=== PATIENT | male | born 1970 | race Caucasian/White ===

== ENCOUNTER 2018-09-15 08:35 | Day surgery (SDC) | payer OTHER ==
[2018-09-15] MEDS ORDERED: Lidocaine 1% PF 2 ML SDV INJECT ONE (08:36)
[2018-09-15] MEDS ORDERED: Propofol 200 MG/20 ML SDV IV ONE (08:36)
[2018-09-15] MEDS ORDERED: Lactated Ringers 1,000 ML IV SCH (10:00)
--- NOTE | 2018-09-15 10:26 | PCM.OPNOTE ---
- General Post-Op/Procedure Note Date of Surgery/Procedure: 09/15/18 Operative Procedure(s): c scope Findings: nl exam Pre Op Diagnosis: colon cancer screening Post-Op Diagnosis: nl exam Anesthesia Technique: MAC Primary Surgeon: Elias Ochoa Anesthesia Provider: Kimo Bunch Complications: None Condition: Good Free Text/Narrative:: see dictation
--- NOTE | 2018-09-15 14:10 | OR ---
DATE OF OPERATION: 09/15/2018 SURGEON: Elias Ochoa MD PROCEDURE PERFORMED: Colonoscopy. PREOPERATIVE DIAGNOSIS: Need for screening C-scope. POSTOPERATIVE DIAGNOSIS: Normal scope. INDICATIONS FOR PROCEDURE: This is a 48-year-old white male who presents for his initial screening colonoscopy. DESCRIPTION OF OPERATION: After an excellent IV sedation was administered, digital rectal exam was performed. No marked abnormality was noted. Flexible colonoscope was inserted and advanced to the cecum. Prep was excellent. Following findings were noted. Ascending colon, unremarkable. Transverse colon, unremarkable. Descending colon, unremarkable. Sigmoid and rectum, unremarkable. The patient tolerated the procedure well. RECOMMENDATIONS: Repeat scope in 10 years. /[id number] /MODL
== END 2018-09-15 10:32 | disposition home or self-care (01) ==
LOC: FB.SDS 08:35
PROVIDERS: ATTEND Surgery
DX: Z12.11 Encounter for screening for malignant neoplasm of colon (principal); E78.5 Hyperlipidemia, unspecified; H52.03 Hypermetropia, bilateral
CPT/HCPCS: 45378; J2001; J2704; J7120

== ENCOUNTER 2020-08-27 16:39 | Emergency (ER) | payer OTHER ==
[2020-08-27] MEDS ORDERED: Acetaminophen/oxyCODONE 325-5 MG Tab PO ONE (16:40)
[2020-08-27] MEDS ORDERED: Ondansetron 4 MG Tab.DIS PO ONE (16:40)
[2020-08-27] MEDS ORDERED: Sodium Chloride 0.9% 10 ML Syringe FLUSH PRN (16:56)
[2020-08-27] MEDS ORDERED: Alum Hydroxide/Mag Hydroxide 15 ML, Lidocaine 2% 15 ML PO ONE ×2 (17:00)
[2020-08-27] MEDS ORDERED: Morphine 4 MG/ML VIAL IVPUSH STA (17:05)
[2020-08-27] MEDS ORDERED: Sodium Chloride 0.9% 1,000 ML IV SCH (17:15)
[2020-08-27] MEDS ORDERED: Iopamidol 755 Mg/ML 100 ML Bottle IV ONE (17:25)
--- NOTE | 2020-08-27 18:05 | EDM.PDOC ---
ED HPI GENERAL MEDICAL PROBLEM - General Chief Complaint: Abdominal Pain Stated Complaint: Abdominal pain Time Seen by Provider: 08/27/20 16:50 Source of Information: Reports: Patient History Limitations: Reports: No Limitations - History of Present Illness INITIAL COMMENTS - FREE TEXT/NARRATIVE: Patient presented to the ED because of sudden onset of periumbilical and epigastric pain which started 30 minutes prior to his arrival in the ED.The pain is continuous, sharp, 9/10. There is no there is no fever, chills, N/V/D or constipation. No urinary symptoms. He doesn't c/o of any fever,chills,cough or cold. - Related Data Allergies Allergy/AdvReac Type Severity Reaction Status Date / Time No Known Allergies Allergy Verified 09/15/18 08:51 Home Meds: Home Meds Acetaminophen/Diphenhydramine [Tylenol Pm Ex-Strength Caplet] 1 tab PO BEDTIME PRN 09/14/18 [History] Acetaminophen/oxyCODONE [Percocet 325-5 MG] 1 - 2 each PO Q4H PRN #10 tab 08/27/20 [Rx] Ondansetron [Zofran ODT] 4 mg PO Q4H PRN #5 tab.dis 08/27/20 [Rx] Past Medical History HEENT History: Reports: Impaired Vision Cardiovascular History: Reports: High Cholesterol Social & Family History - Tobacco Use Tobacco Use Status *Q: Unknown Ever Used Tobacco - Caffeine Use Caffeine Use: Reports: Coffee - Recreational Drug Use Recreational Drug Use: No ED ROS GENERAL - Review of Systems Review Of Systems: See Below Constitutional: Reports: No Symptoms HEENT: Reports: No Symptoms Respiratory: Reports: No Symptoms Cardiovascular: Reports: No Symptoms Endocrine: Reports: No Symptoms GI/Abdominal: Reports: Abdominal Pain : Reports: No Symptoms Musculoskeletal: Reports: No Symptoms Skin: Reports: No Symptoms Neurological: Reports: No Symptoms Psychiatric: Reports: No Symptoms ED EXAM, GI/ABD - Physical Exam Exam: See Below General Appearance: Alert, No Apparent Distress Ears: Normal External Exam, Normal [place] Nose: Normal Inspection, Normal Mucosa, No Blood Throat/Mouth: Normal Inspection, Normal Lips, Normal Teeth Head: Atraumatic, Normocephalic Neck: Normal Inspection, Supple, Non-Tender, Full Range of Motion Respiratory/Chest: No Respiratory Distress, Lungs Clear, Normal Breath Sounds Cardiovascular: Normal Peripheral Pulses, Regular Rate, Rhythm, No Edema, No Gallop, No JVD, No Murmur, No Rub GI/Abdominal Exam: Normal Bowel Sounds, Soft, Other (tenderness over the periumbilical area) Back Exam: Normal Inspection, Full Range of Motion Extremities: Normal Inspection, Normal Range of Motion, Non-Tender, No Pedal Edema, Normal Capillary Refill Neurological: Alert, Oriented, CN II-XII Intact, Normal Cognition Psychiatric: Normal Affect, Normal Mood Skin Exam: Warm #1 Interpretation EKG Date: 08/27/20 Time: 16:50 Rhythm: NSR Rate (Beats/Min): 86 [place]: Normal P-Wave: Present QRS: RBBB ST-T: Normal QT: Normal Comparison: NA - No Prior EKG (NSR RBBB) EKG Interpretation Comments: NSR RBBB Course - Vital Signs Text/Narrative:: Lab and CT result was reviewed and discussed with patient and his NS 1 L bolus Morphine 4 mg IV x1 GI cocktail Percocet 5/325, 2 po x1 Toradol 30 mg IV x1 Patient refused to be admitted and told me a that he can take care of himself at home. I told him to return to the ED anytime if pain is getting worse, peristent nausea,vomiting. Last Recorded V/S: Last Vital Signs Temp 36.4 C 08/27/20 16:48 Pulse 93 08/27/20 16:48 Resp 16 08/27/20 16:48 BP 119/79 08/27/20 16:48 Pulse Ox 98 08/27/20 16:48 - Orders/Labs/Meds Orders: Active Orders 24 hr Category Date Time Status EKG Documentation Completion [RC] ASDIRECTED Care 08/27/20 17:06 Active CORONAVIRUS (COVID19) [facility] Stat Lab 08/27/20 18:45 Ordered Sodium Chloride 0.9% [Normal Saline] 1,000 ml Med 08/27/20 17:15 Active IV ASDIRECTED Sodium Chloride 0.9% [Saline Flush] Med 08/27/20 16:56 Active 10 ml FLUSH ASDIRECTED PRN Saline Lock Insert [OM.PC] Routine Oth 08/27/20 16:56 Ordered EKG 12 Lead [EK] Routine Ther 08/27/20 17:06 Ordered Medication Orders Sodium Chloride (Normal Saline) 1,000 mls @ 999 mls/hr IV ASDIRECTED STEPHEN Last Admin: 08/27/20 17:28 Dose: 999 mls/hr Documented by: GABRIEL Sodium Chloride (Sodium Chloride 0.9% 10 Ml Syringe) 10 ml FLUSH ASDIRECTED PRN PRN Reason: Keep Vein Open Last Admin: 08/27/20 18:28 Dose: 10 ml Documented by: GABRIEL Labs: Laboratory Tests 08/27/20 08/27/20 08/27/20 Range/Units 17:20 17:20 17:20 WBC 9.4 (3.2-10.1) x10-3/uL RBC 4.80 (3.90-5.90) x10(6)uL Hgb 14.7 (12.9-17.7) g/dL Hct 43.1 (38.3-50.1) % MCV 89.8 (80.8-98.7) fL MCH 30.7 (27.0-33.3) pg MCHC 34.2 (28.7-35.3) g/dL RDW 14.3 (12.4-15.0) % Plt Count 755 H (117-477) x10(3)uL MPV 7.4 (6.7-11.0) fL Neut % (Auto) 68.8 (40.3-71.8) % Lymph % (Auto) 21.4 (15.8-45.3) % [place] % (Auto) 7.1 (5.5-15.2) % Eos % (Auto) 1.9 (0.1-6.8) % Baso % (Auto) 0.8 (0.3-3.8) % Neut # (Auto) 6.5 (1.7-6.9) x10-3/uL Lymph # (Auto) 2.0 (0.5-4.5) x10-3/uL [place] # (Auto) 0.7 (0.0-1.2) x10-3/uL Eos # (Auto) 0.2 (0.0-0.6) x10-3/uL Baso # (Auto) 0.1 (0.0-0.3) x10-3/uL PT (9.0-11.1) sec INR (1.00-1.24) APTT (24.4-33.2) SECONDS Sodium 139 (135-145) mmol/L Potassium 4.0 (3.5-5.3) mmol/L Chloride 101 (100-110) mmol/L Carbon Dioxide 24 (21-32) mmol/L BUN 22 H (7-18) mg/dL Creatinine 1.5 H (0.70-1.30) mg/dL Est Cr Clr Drug Dosing TNP Estimated GFR (MDRD) 49 L (>60) BUN/Creatinine Ratio 14.7 (9-20) Glucose 112 (80-116) mg/dL Calcium 8.1 L (8.6-10.2) mg/dL Total Bilirubin 0.9 (0.1-1.3) mg/dL AST 27 H (5-25) IU/L ALT 42 H (12-36) U/L Alkaline Phosphatase 92 (56-112) IU/L Troponin I (4.0-60.3) pg/mL Total Protein 7.2 (6.0-8.0) g/dL Albumin 3.9 (3.5-5.2) g/dL Globulin 3.3 g/dL Albumin/Globulin Ratio 1.2 Amylase 51 (25-115) U/L Lipase 120 (73-393) U/L Urine Color (YELLOW) Urine Appearance (CLEAR) Urine pH (5.0-6.5) Ur Specific [place] (1.010-1.025) Urine Protein (NEGATIVE) mg/dL Urine Glucose (UA) (NORMAL) mg/dL Urine Ketones (NEGATIVE) mg/dL Urine Occult Blood (NEGATIVE) Urine Nitrite (NEGATIVE) Urine Bilirubin (NEGATIVE) Urine Urobilinogen (NEGATIVE) mg/dL Ur Leukocyte Esterase (NEGATIVE) Urine RBC (0-5) Urine WBC (0-5) Ur Squamous Epith Cells (NS,R,O) Urine Bacteria (NS) 08/27/20 08/27/20 08/27/20 Range/Units 17:20 17:20 17:54 WBC (3.2-10.1) x10-3/uL RBC (3.90-5.90) x10(6)uL Hgb (12.9-17.7) g/dL Hct (38.3-50.1) % MCV (80.8-98.7) fL MCH (27.0-33.3) pg MCHC (28.7-35.3) g/dL RDW (12.4-15.0) % Plt Count (117-477) x10(3)uL MPV (6.7-11.0) fL Neut % (Auto) (40.3-71.8) % Lymph % (Auto) (15.8-45.3) % [place] % (Auto) (5.5-15.2) % Eos % (Auto) (0.1-6.8) % Baso % (Auto) (0.3-3.8) % Neut # (Auto) (1.7-6.9) x10-3/uL Lymph # (Auto) (0.5-4.5) x10-3/uL [place] # (Auto) (0.0-1.2) x10-3/uL Eos # (Auto) (0.0-0.6) x10-3/uL Baso # (Auto) (0.0-0.3) x10-3/uL PT 11.3 H (9.0-11.1) sec INR 1.05 (1.00-1.24) APTT 22.4 L (24.4-33.2) SECONDS Sodium (135-145) mmol/L Potassium (3.5-5.3) mmol/L Chloride (100-110) mmol/L Carbon Dioxide (21-32) mmol/L BUN (7-18) mg/dL Creatinine (0.70-1.30) mg/dL Est Cr Clr Drug Dosing Estimated GFR (MDRD) (>60) BUN/Creatinine Ratio (9-20) Glucose (80-116) mg/dL Calcium (8.6-10.2) mg/dL Total Bilirubin (0.1-1.3) mg/dL AST (5-25) IU/L ALT (12-36) U/L Alkaline Phosphatase (56-112) IU/L Troponin I 4.5 (4.0-60.3) pg/mL Total Protein (6.0-8.0) g/dL Albumin (3.5-5.2) g/dL Globulin g/dL Albumin/Globulin Ratio Amylase (25-115) U/L Lipase (73-393) U/L Urine Color Yellow (YELLOW) Urine Appearance Clear (CLEAR) Urine pH 5.0 (5.0-6.5) Ur Specific [place] 1.020 (1.010-1.025) Urine Protein Negative (NEGATIVE) mg/dL Urine Glucose (UA) Normal (NORMAL) mg/dL Urine Ketones Negative (NEGATIVE) mg/dL Urine Occult Blood Negative (NEGATIVE) Urine Nitrite Negative (NEGATIVE) Urine Bilirubin Negative (NEGATIVE) Urine Urobilinogen Normal (NEGATIVE) mg/dL Ur Leukocyte Esterase Negative (NEGATIVE) Urine RBC 0-5 (0-5) Urine WBC 0-5 (0-5) Ur Squamous Epith Cells Occasional (NS,R,O) Urine Bacteria Occasional H (NS) Meds: Medications Generic Name Dose Route Start Last Admin Trade Name Freq PRN Reason Stop Dose Admin Sodium Chloride 1,000 mls @ 999 mls/hr 08/27/20 17:15 08/27/20 17:28 Normal Saline IV 999 mls/hr ASDIRECTED STEPHEN Administration Sodium Chloride 10 ml 08/27/20 16:56 08/27/20 18:28 Sodium Chloride 0.9% 10 Ml Syringe FLUSH 10 ml ASDIRECTED PRN Administration Keep Vein Open Discontinued Medications Generic Name Dose Route Start Last Admin Trade Name Freq PRN Reason Stop Dose Admin Al Hydroxide/Mg Hydroxide 15 0 ml 08/27/20 17:00 08/27/20 17:11 ml/ Lidocaine HCl 15 ml PO 08/27/20 17:01 30 ml ONETIME ONE Administration Iopamidol 100 ml 08/27/20 17:25 08/27/20 17:44 Iopamidol 755 Mg/Ml 100 Ml Bottle IV 08/27/20 17:26 100 ml . DIRECTED ONE Administration Ketorolac Tromethamine 30 mg 08/27/20 18:55 08/27/20 19:08 Ketorolac 30 Mg/Ml Sdv IVPUSH 08/27/20 18:56 30 mg NOW STA Administration Morphine Sulfate 4 mg 08/27/20 17:05 08/27/20 17:11 Morphine 4 Mg/Ml Vial IVPUSH 08/27/20 17:06 4 mg NOW STA Administration Oxycodone/Acetaminophen 2 tab 08/27/20 18:55 08/27/20 19:08 Acetaminophen/Oxycodone 325-5 Mg Tab PO 08/27/20 18:56 2 tab NOW STA Administration Departure - Departure Time of Disposition: 19:30 Disposition: Home, Self-Care 01 Condition: Good Clinical Impression: Acute pancreatitis - Discharge Information Prescriptions: Acetaminophen/oxyCODONE [Percocet 325-5 MG] 1 - 2 each PO Q4H PRN #10 tab PRN Reason: Pain Ondansetron [Zofran ODT] 4 mg PO Q4H PRN #5 tab.dis PRN Reason: Nausea Instructions: Acute Pancreatitis, [id number] Referrals: Kimo Miranda MD [Primary Care Provider] - Forms: ED Department Discharge Additional Instructions: Please read discharge instructions on acute pancreatitis NO alcohol, greasy foods while you have the abdominal pain Take zofran ODT 4 mg every 4 hours as needed for nausea Percocet 5/325, 1-2 tablets every 4-6 hours as needed for pain Return to the ED anytime if your pain is unbearable, persistent nausea/vomiting, bloody stools, otherwise, follow up with your doctor this week. Sepsis Event Note (ED) - Evaluation Sepsis Screening Result: No Definite Risk - Focused Exam Vital Signs: Vital Signs Temp Pulse Resp BP Pulse Ox 08/27/20 16:48 36.4 C 93 16 119/79 98 - My Orders Last 24 Hours: My Active Orders 08/27/20 16:56 Sodium Chloride 0.9% [Saline Flush] 10 ml FLUSH ASDIRECTED PRN Saline Lock Insert [OM.PC] Routine 08/27/20 17:06 EKG Documentation Completion [RC] ASDIRECTED EKG 12 Lead [EK] Routine 08/27/20 17:15 Sodium Chloride 0.9% [Normal Saline] 1,000 ml IV ASDIRECTED 08/27/20 18:45 CORONAVIRUS (COVID19) [facility] Stat - Assessment/Plan Last 24 Hours: My Active Orders 08/27/20 16:56 Sodium Chloride 0.9% [Saline Flush] 10 ml FLUSH ASDIRECTED PRN Saline Lock Insert [OM.PC] Routine 08/27/20 17:06 EKG Documentation Completion [RC] ASDIRECTED EKG 12 Lead [EK] Routine 08/27/20 17:15 Sodium Chloride 0.9% [Normal Saline] 1,000 ml IV ASDIRECTED 08/27/20 18:45 CORONAVIRUS (COVID19) [facility] Stat
[2020-08-27] MEDS ORDERED: Acetaminophen/oxyCODONE 325-5 MG Tab PO STA (18:55)
[2020-08-27] MEDS ORDERED: Ketorolac 30 MG/ML SDV IVPUSH STA (18:55)
--- NOTE | 2020-08-27 18:55 | CT ---
INDICATION: Periumbilical abdominal pain, also diffuse pain in the abdomen. CT ABDOMEN AND PELVIS WITH CONTRAST: Spiral 3.75 mm axial sections were obtained through the abdomen and pelvis with 100 cc Isovue-370 at 2 mL per second, with sagittal and coronal reconstructions 08/27/20 - no comparisons. Total exam DLP was 1543.85 mGy-cm. The lower lung palma and pleural spaces visualized were unremarkable. No pericardial effusion was seen with normal heart size. The liver showed evidence of a few tiny low-density lesions compatible with simple cysts with the gallbladder appearing unremarkable. No ductal dilatation was suggested. The spleen and pancreatic tail and body appeared normal. There is noted a small splenule at the splenic hilum. The pancreatic head was not well seen due to surrounding fat stranding and fluid which appears to be emanating from the head of the pancreas area medially and laterally into the paracolic gutter and extending inferiorly into the upper pelvis anteriorly also. The appearance is suggestive of pancreatic head pancreatitis with phlegmon formation. No definite retroperitoneal mass was seen. The kidneys and adrenal glands appear essentially normal. What appears to be appendix appeared normal on coronal images 45 through 48. No definite bowel obstruction was identified. No free air was seen. There appears to be some thickening of the wall of the urinary bladder which may be on the basis of cystitis and should be correlated clinically. No definite inguinal or ventral hernia was identified. IMPRESSION: Findings are suspicious for pancreatitis in the head of the pancreas with fairly severe phlegmon formation subsequently present. This should be correlated clinically as other etiology is difficult to entirely exclude such as infection, or possibly bowel inflammation or other etiology. Report was called to Dr. Horton at approximately 1830 hours. [facility]
== END 2020-08-27 19:32 | disposition home or self-care (01) ==
LOC: FB.ED 16:39
DX: K85.90 Acute pancreatitis without necrosis or infection, unspecified (principal)
CPT/HCPCS: 36415; 74177; 80053; 81001; 82150; 83690; 84484; 85025; 85610; 85730; 93005; 93010; 96374; 96375; 99283; 99284-25; A9270-GY; J1885; J2270; J7030; Q9967

== ENCOUNTER 2020-08-29 14:46 | Inpatient (IN) | payer OTHER ==
[2020-08-29] MEDS ORDERED: Ondansetron 4 MG/2 ML SDV IV PRN (15:04)
[2020-08-29] MEDS ORDERED: Sodium Chloride 0.9% 10 ML Syringe FLUSH PRN (15:04)
[2020-08-29] MEDS: Sodium Chloride 0.9% 1,000 ML IV SCH ×2 (15:50→23:11)
--- NOTE | 2020-08-29 16:23 | PCM.HP.2 ---
H&P History of Present Illness - General Date of Service: 08/29/20 Admit Problem/Dx: Admission Diagnosis/Problem Admission Diagnosis/Problem Acute pancreatitis Source of Information: Patient History Limitations: Reports: No Limitations - History of Present Illness Initial Comments - Free Text/Narative: This is a 49 male patient that was seen in the emergency room on 08/27/2020 and diagnosed with pancreatitis on CT scan. Patient refused admission and went home. He's having acute onset of periumbilical epigastric pain. He denied any nausea or vomiting. He has a little fevers and chills now and no nausea. Normal bowel movements. He has never had his gallbladder removed. He states he normally drinks a couple times a week couple beers. Last 2 weeks he's been on medication has been drinking more than normal he states about 6 drinks a day. - Related Data Allergies/Adverse Reactions: Allergies Allergy/AdvReac Type Severity Reaction Status Date / Time No Known Allergies Allergy Verified 09/15/18 08:51 Home Medications: Home Meds Acetaminophen/Diphenhydramine [Tylenol Pm Ex-Strength Caplet] 1 tab PO BEDTIME PRN 09/14/18 [History] Ibuprofen 200 - 400 mg PO Q4H PRN 08/29/20 [History] Past Medical History HEENT History: Reports: Impaired Vision Cardiovascular History: Reports: High Cholesterol Social & Family History - Family History Family Medical History: No Pertinent Family History - Caffeine Use Caffeine Use: Reports: Coffee H&P Review of Systems - Review of Systems: Review Of Systems: See Below General: Reports: Fever, Chills HEENT: Reports: No Symptoms Pulmonary: Reports: No Symptoms Cardiovascular: Reports: No Symptoms Gastrointestinal: Reports: Abdominal Pain Genitourinary: Reports: No Symptoms Musculoskeletal: Reports: No Symptoms Skin: Reports: No Symptoms Psychiatric: Reports: No Symptoms Neurological: Reports: No Symptoms Hematologic/Lymphatic: Reports: No Symptoms Immunologic: Reports: No Symptoms Exam - Exam Exam: See Below - Exam General: Alert, Oriented, Cooperative HEENT: PERRLA, TMs Clear Neck: Supple, Trachea Midline Lungs: Clear to Auscultation, Normal Respiratory Effort Cardiovascular: Regular Rate. No: Systolic Murmur GI/Abdominal Exam: Normal Bowel Sounds, No Organomegaly, No Distention, Distended, Tender. No: Guarding, Rigid, Hepatomegaly, Splenomegaly Extremities: Normal Inspection, Non-Tender, No Pedal Edema Neurological: Normal Speech, Normal Tone Neuro Extensive - Mental Status: Alert, Oriented x3, Normal Mood/Affect, Normal Cognition Neuro Extensive - Motor, Sensory, Reflexes: Normal Gait Psychiatric: Alert, Normal Affect, Normal Mood - Patient Data Lab Results Last 24 hrs: Laboratory Results - last 24 hr 08/29/20 08/29/20 Range/Units 15:25 15:25 WBC 10.0 (3.2-10.1) x10-3/uL RBC 4.16 (3.90-5.90) x10(6)uL Hgb 12.5 L (12.9-17.7) g/dL Hct 37.5 L (38.3-50.1) % MCV 90.1 (80.8-98.7) fL MCH 30.0 (27.0-33.3) pg MCHC 33.3 (28.7-35.3) g/dL RDW 14.0 (12.4-15.0) % Plt Count 573 H (117-477) x10(3)uL MPV 7.6 (6.7-11.0) fL Neut % (Auto) 77.7 H (40.3-71.8) % Lymph % (Auto) 12.2 L (15.8-45.3) % [place] % (Auto) 8.8 (5.5-15.2) % Eos % (Auto) 0.7 (0.1-6.8) % Baso % (Auto) 0.6 (0.3-3.8) % Neut # (Auto) 7.8 H (1.7-6.9) x10-3/uL Lymph # (Auto) 1.2 (0.5-4.5) x10-3/uL [place] # (Auto) 0.9 (0.0-1.2) x10-3/uL Eos # (Auto) 0.1 (0.0-0.6) x10-3/uL Baso # (Auto) 0.1 (0.0-0.3) x10-3/uL Lipase 72 L (73-393) U/L Result Diagrams: 08/29/20 15:25 - Problem List (1) Acute pancreatitis SNOMED Code(s): 271565570 ICD Code: K85.90 - ACUTE PANCREATITIS WITHOUT NECROSIS OR INFECTION, UNSP Status: Acute Current Visit: No Problem List Initiated/Reviewed/Updated: Yes Orders Last 24hrs: Active Orders 24 hr Category Date Time Status Patient Status [ADT] Routine ADT 08/29/20 15:04 Active Height and Weight [RC] DAILY Care 08/29/20 15:04 Active Intake and Output [RC] QSHIFT Care 08/29/20 15:04 Active Oxygen Therapy [RC] PRN Care 08/29/20 15:04 Active Up ad Sukhdeep [RC] ASDIRECTED Care 08/29/20 15:04 Active VTE/DVT Education [RC] Per Unit Routine Care 08/29/20 15:04 Active Vital Signs [RC] Q4H Care 08/29/20 15:04 Active Clear Liquid Diet [DIET] Diet 08/29/20 Dinner Active COMPREHENSIVE METABOLIC PN,CMP [CHEM] Routine Lab 08/29/20 15:25 Received CORONAVIRUS COVID-19 TATA [MOLEC] Stat Lab 08/29/20 16:02 Ordered Enoxaparin [Lovenox] Med 08/29/20 16:30 Active 40 mg SUBCUT Q24H Ondansetron [Zofran] Med 08/29/20 15:04 Active 4 mg IV Q4H PRN Pantoprazole [ProTONIX IV] Med 08/29/20 15:15 Active 40 mg IVPUSH DAILY Sodium Chloride 0.9% [Normal Saline] 1,000 ml Med 08/29/20 15:15 Active IV ASDIRECTED Sodium Chloride 0.9% [Saline Flush] Med 08/29/20 15:04 Active 10 ml FLUSH ASDIRECTED PRN Peripheral IV Insertion Adult [OM.PC] Routine Oth 08/29/20 15:04 Ordered Sequential Compression Device [OM.PC] Per Unit Routine Oth 08/29/20 15:05 Ordered Resuscitation Status Routine Resus Stat 08/29/20 15:04 Ordered Medication Orders Enoxaparin Sodium (Enoxaparin 40 Mg/0.4 Ml Syringe) 40 mg SUBCUT Q24H STEPHEN Sodium Chloride (Normal Saline) 1,000 mls @ 125 mls/hr IV ASDIRECTED STEPHEN Last Admin: 08/29/20 15:50 Dose: 125 mls/hr Documented by: NELLIE Ondansetron HCl (Ondansetron 4 Mg/2 Ml Sdv) 4 mg IV Q4H PRN PRN Reason: Nausea/Vomiting Pantoprazole Sodium (Pantoprazole 40 Mg Vial) 40 mg IVPUSH DAILY STEPHEN Sodium Chloride (Sodium Chloride 0.9% 10 Ml Syringe) 10 ml FLUSH ASDIRECTED PRN PRN Reason: Keep Vein Open Assessment/Plan Comment:: 1. Admit to the inpatient per 2. Lovenox for DVT prophylaxis 3. Clear liquid diet 4. Up ad sukhdeep. 5. IV fluids 6. IV pain medications 7. Repeat labs including lipase. 8. Full code. - Mortality Measure Prognosis:: Good
[2020-08-29] MEDS ORDERED: Morphine 2 MG/ML SYRINGE IVPUSH PRN (16:24)
[2020-08-29] MEDS: Pantoprazole 40 MG Vial IVPUSH SCH (17:03)
[2020-08-29] MEDS: Enoxaparin 40 MG/0.4 ML Syringe SUBCUT SCH (17:03)
[2020-08-30] MEDS: Sodium Chloride 0.9% 1,000 ML IV SCH ×2 (07:16→15:25)
--- NOTE | 2020-08-30 08:27 | PCM.PN ---
- General Info Date of Service: 08/30/20 Admission Dx/Problem (Free Text): The patient states is about the same today. Still has abdominal pain is generalized and bloating. No fevers or chills. Use MS last night and he did not sleep very well because of back pain and abdominal pain. - Patient Data Vitals - Most Recent: Last Vital Signs Temp 98.6 F 08/30/20 06:00 Pulse 85 08/30/20 06:00 Resp 16 08/30/20 06:00 BP 144/89 H 08/30/20 06:00 Pulse Ox 95 08/30/20 06:00 Weight - Most Recent: 241 lb 1 oz I&O - Last 24 Hours: Intake & Output 08/29/20 08/30/20 08/30/20 22:59 06:59 14:59 Intake Total 1950 1000 Output Total 650 Balance 1300 1000 Lab Results Last 24 Hours: Laboratory Results - last 24 hr 08/29/20 08/29/20 08/29/20 Range/Units 15:25 15:25 15:25 WBC 10.0 (3.2-10.1) x10-3/uL RBC 4.16 (3.90-5.90) x10(6)uL Hgb 12.5 L (12.9-17.7) g/dL Hct 37.5 L (38.3-50.1) % MCV 90.1 (80.8-98.7) fL MCH 30.0 (27.0-33.3) pg MCHC 33.3 (28.7-35.3) g/dL RDW 14.0 (12.4-15.0) % Plt Count 573 H (117-477) x10(3)uL MPV 7.6 (6.7-11.0) fL Neut % (Auto) 77.7 H (40.3-71.8) % Lymph % (Auto) 12.2 L (15.8-45.3) % [place] % (Auto) 8.8 (5.5-15.2) % Eos % (Auto) 0.7 (0.1-6.8) % Baso % (Auto) 0.6 (0.3-3.8) % Neut # (Auto) 7.8 H (1.7-6.9) x10-3/uL Lymph # (Auto) 1.2 (0.5-4.5) x10-3/uL [place] # (Auto) 0.9 (0.0-1.2) x10-3/uL Eos # (Auto) 0.1 (0.0-0.6) x10-3/uL Baso # (Auto) 0.1 (0.0-0.3) x10-3/uL Sodium 138 (135-145) mmol/L Potassium 4.1 (3.5-5.3) mmol/L Chloride 99 L (100-110) mmol/L Carbon Dioxide 26 (21-32) mmol/L BUN 14 (7-18) mg/dL Creatinine 1.2 (0.70-1.30) mg/dL Est Cr Clr Drug Dosing TNP Estimated GFR (MDRD) > 60 (>60) BUN/Creatinine Ratio 11.7 (9-20) Glucose 88 (80-116) mg/dL Calcium 8.5 L (8.6-10.2) mg/dL Total Bilirubin 1.4 H (0.1-1.3) mg/dL AST 29 H (5-25) IU/L ALT 36 D (12-36) U/L Alkaline Phosphatase 88 (56-112) IU/L Total Protein 7.3 (6.0-8.0) g/dL Albumin 3.8 (3.5-5.2) g/dL Globulin 3.5 g/dL Albumin/Globulin Ratio 1.1 Lipase 72 L (73-393) U/L SARS-CoV-2 RNA (TATA) (NEGATIVE) 08/29/20 08/30/20 08/30/20 Range/Units 15:40 06:20 06:20 WBC 8.3 (3.2-10.1) x10-3/uL RBC 3.76 L (3.90-5.90) x10(6)uL Hgb 11.4 L (12.9-17.7) g/dL Hct 34.2 L (38.3-50.1) % MCV 91.0 (80.8-98.7) fL MCH 30.4 (27.0-33.3) pg MCHC 33.4 (28.7-35.3) g/dL RDW 13.9 (12.4-15.0) % Plt Count 546 H (117-477) x10(3)uL MPV 7.7 (6.7-11.0) fL Neut % (Auto) 71.4 (40.3-71.8) % Lymph % (Auto) 18.6 (15.8-45.3) % [place] % (Auto) 8.3 (5.5-15.2) % Eos % (Auto) 1.2 (0.1-6.8) % Baso % (Auto) 0.5 (0.3-3.8) % Neut # (Auto) 5.9 (1.7-6.9) x10-3/uL Lymph # (Auto) 1.5 (0.5-4.5) x10-3/uL [place] # (Auto) 0.7 (0.0-1.2) x10-3/uL Eos # (Auto) 0.1 (0.0-0.6) x10-3/uL Baso # (Auto) 0.0 (0.0-0.3) x10-3/uL Sodium 141 (135-145) mmol/L Potassium 4.1 (3.5-5.3) mmol/L Chloride 101 (100-110) mmol/L Carbon Dioxide 28 (21-32) mmol/L BUN 12 (7-18) mg/dL Creatinine 1.2 (0.70-1.30) mg/dL Est Cr Clr Drug Dosing 87.04 Estimated GFR (MDRD) > 60 (>60) BUN/Creatinine Ratio 10.0 (9-20) Glucose 83 (80-116) mg/dL Calcium 8.0 L (8.6-10.2) mg/dL Total Bilirubin 1.2 (0.1-1.3) mg/dL AST 25 D (5-25) IU/L ALT 30 D (12-36) U/L Alkaline Phosphatase 76 (56-112) IU/L Total Protein 6.5 (6.0-8.0) g/dL Albumin 3.2 L (3.5-5.2) g/dL Globulin 3.3 g/dL Albumin/Globulin Ratio 1.0 Lipase (73-393) U/L SARS-CoV-2 RNA (TATA) Negative (NEGATIVE) 08/30/20 Range/Units 06:20 WBC (3.2-10.1) x10-3/uL RBC (3.90-5.90) x10(6)uL Hgb (12.9-17.7) g/dL Hct (38.3-50.1) % MCV (80.8-98.7) fL MCH (27.0-33.3) pg MCHC (28.7-35.3) g/dL RDW (12.4-15.0) % Plt Count (117-477) x10(3)uL MPV (6.7-11.0) fL Neut % (Auto) (40.3-71.8) % Lymph % (Auto) (15.8-45.3) % [place] % (Auto) (5.5-15.2) % Eos % (Auto) (0.1-6.8) % Baso % (Auto) (0.3-3.8) % Neut # (Auto) (1.7-6.9) x10-3/uL Lymph # (Auto) (0.5-4.5) x10-3/uL [place] # (Auto) (0.0-1.2) x10-3/uL Eos # (Auto) (0.0-0.6) x10-3/uL Baso # (Auto) (0.0-0.3) x10-3/uL Sodium (135-145) mmol/L Potassium (3.5-5.3) mmol/L Chloride (100-110) mmol/L Carbon Dioxide (21-32) mmol/L BUN (7-18) mg/dL Creatinine (0.70-1.30) mg/dL Est Cr Clr Drug Dosing Estimated GFR (MDRD) (>60) BUN/Creatinine Ratio (9-20) Glucose (80-116) mg/dL Calcium (8.6-10.2) mg/dL Total Bilirubin (0.1-1.3) mg/dL AST (5-25) IU/L ALT (12-36) U/L Alkaline Phosphatase (56-112) IU/L Total Protein (6.0-8.0) g/dL Albumin (3.5-5.2) g/dL Globulin g/dL Albumin/Globulin Ratio Lipase 70 L (73-393) U/L SARS-CoV-2 RNA (TATA) (NEGATIVE) Med Orders - Current: Current Medications Enoxaparin Sodium (Enoxaparin 40 Mg/0.4 Ml Syringe) 40 mg SUBCUT Q24H [facility] Last Admin: 08/29/20 17:03 Dose: 40 mg Documented by: Sodium Chloride (Normal Saline) 1,000 mls @ 125 mls/hr IV ASDIRECTED [facility] Last Admin: 08/30/20 07:16 Dose: 125 mls/hr Documented by: Morphine Sulfate (Morphine 2 Mg/Ml Syringe) 2 mg IVPUSH Q4H PRN PRN Reason: Pain Last Admin: 08/29/20 21:24 Dose: 2 mg Documented by: Ondansetron HCl (Ondansetron 4 Mg/2 Ml Sdv) 4 mg IV Q4H PRN PRN Reason: Nausea/Vomiting Pantoprazole Sodium (Pantoprazole 40 Mg Vial) 40 mg IVPUSH DAILY [facility] Last Admin: 08/29/20 17:03 Dose: 40 mg Documented by: Sodium Chloride (Sodium Chloride 0.9% 10 Ml Syringe) 10 ml FLUSH ASDIRECTED PRN PRN Reason: Keep Vein Open - Exam General: Alert, Oriented Lungs: Normal Respiratory Effort GI/Abdominal Exam: Soft, Tender (Diffuse). No: Guarding, Rebound - Patient Data Lab Results Last 24 hrs: Laboratory Results - last 24 hr 08/29/20 08/29/20 08/29/20 Range/Units 15:25 15:25 15:25 WBC 10.0 (3.2-10.1) x10-3/uL RBC 4.16 (3.90-5.90) x10(6)uL Hgb 12.5 L (12.9-17.7) g/dL Hct 37.5 L (38.3-50.1) % MCV 90.1 (80.8-98.7) fL MCH 30.0 (27.0-33.3) pg MCHC 33.3 (28.7-35.3) g/dL RDW 14.0 (12.4-15.0) % Plt Count 573 H (117-477) x10(3)uL MPV 7.6 (6.7-11.0) fL Neut % (Auto) 77.7 H (40.3-71.8) % Lymph % (Auto) 12.2 L (15.8-45.3) % [place] % (Auto) 8.8 (5.5-15.2) % Eos % (Auto) 0.7 (0.1-6.8) % Baso % (Auto) 0.6 (0.3-3.8) % Neut # (Auto) 7.8 H (1.7-6.9) x10-3/uL Lymph # (Auto) 1.2 (0.5-4.5) x10-3/uL [place] # (Auto) 0.9 (0.0-1.2) x10-3/uL Eos # (Auto) 0.1 (0.0-0.6) x10-3/uL Baso # (Auto) 0.1 (0.0-0.3) x10-3/uL Sodium 138 (135-145) mmol/L Potassium 4.1 (3.5-5.3) mmol/L Chloride 99 L (100-110) mmol/L Carbon Dioxide 26 (21-32) mmol/L BUN 14 (7-18) mg/dL Creatinine 1.2 (0.70-1.30) mg/dL Est Cr Clr Drug Dosing TNP Estimated GFR (MDRD) > 60 (>60) BUN/Creatinine Ratio 11.7 (9-20) Glucose 88 (80-116) mg/dL Calcium 8.5 L (8.6-10.2) mg/dL Total Bilirubin 1.4 H (0.1-1.3) mg/dL AST 29 H (5-25) IU/L ALT 36 D (12-36) U/L Alkaline Phosphatase 88 (56-112) IU/L Total Protein 7.3 (6.0-8.0) g/dL Albumin 3.8 (3.5-5.2) g/dL Globulin 3.5 g/dL Albumin/Globulin Ratio 1.1 Lipase 72 L (73-393) U/L SARS-CoV-2 RNA (TATA) (NEGATIVE) 08/29/20 08/30/20 08/30/20 Range/Units 15:40 06:20 06:20 WBC 8.3 (3.2-10.1) x10-3/uL RBC 3.76 L (3.90-5.90) x10(6)uL Hgb 11.4 L (12.9-17.7) g/dL Hct 34.2 L (38.3-50.1) % MCV 91.0 (80.8-98.7) fL MCH 30.4 (27.0-33.3) pg MCHC 33.4 (28.7-35.3) g/dL RDW 13.9 (12.4-15.0) % Plt Count 546 H (117-477) x10(3)uL MPV 7.7 (6.7-11.0) fL Neut % (Auto) 71.4 (40.3-71.8) % Lymph % (Auto) 18.6 (15.8-45.3) % [place] % (Auto) 8.3 (5.5-15.2) % Eos % (Auto) 1.2 (0.1-6.8) % Baso % (Auto) 0.5 (0.3-3.8) % Neut # (Auto) 5.9 (1.7-6.9) x10-3/uL Lymph # (Auto) 1.5 (0.5-4.5) x10-3/uL [place] # (Auto) 0.7 (0.0-1.2) x10-3/uL Eos # (Auto) 0.1 (0.0-0.6) x10-3/uL Baso # (Auto) 0.0 (0.0-0.3) x10-3/uL Sodium 141 (135-145) mmol/L Potassium 4.1 (3.5-5.3) mmol/L Chloride 101 (100-110) mmol/L Carbon Dioxide 28 (21-32) mmol/L BUN 12 (7-18) mg/dL Creatinine 1.2 (0.70-1.30) mg/dL Est Cr Clr Drug Dosing 87.04 Estimated GFR (MDRD) > 60 (>60) BUN/Creatinine Ratio 10.0 (9-20) Glucose 83 (80-116) mg/dL Calcium 8.0 L (8.6-10.2) mg/dL Total Bilirubin 1.2 (0.1-1.3) mg/dL AST 25 D (5-25) IU/L ALT 30 D (12-36) U/L Alkaline Phosphatase 76 (56-112) IU/L Total Protein 6.5 (6.0-8.0) g/dL Albumin 3.2 L (3.5-5.2) g/dL Globulin 3.3 g/dL Albumin/Globulin Ratio 1.0 Lipase (73-393) U/L SARS-CoV-2 RNA (TATA) Negative (NEGATIVE) 08/30/20 Range/Units 06:20 WBC (3.2-10.1) x10-3/uL RBC (3.90-5.90) x10(6)uL Hgb (12.9-17.7) g/dL Hct (38.3-50.1) % MCV (80.8-98.7) fL MCH (27.0-33.3) pg MCHC (28.7-35.3) g/dL RDW (12.4-15.0) % Plt Count (117-477) x10(3)uL MPV (6.7-11.0) fL Neut % (Auto) (40.3-71.8) % Lymph % (Auto) (15.8-45.3) % [place] % (Auto) (5.5-15.2) % Eos % (Auto) (0.1-6.8) % Baso % (Auto) (0.3-3.8) % Neut # (Auto) (1.7-6.9) x10-3/uL Lymph # (Auto) (0.5-4.5) x10-3/uL [place] # (Auto) (0.0-1.2) x10-3/uL Eos # (Auto) (0.0-0.6) x10-3/uL Baso # (Auto) (0.0-0.3) x10-3/uL Sodium (135-145) mmol/L Potassium (3.5-5.3) mmol/L Chloride (100-110) mmol/L Carbon Dioxide (21-32) mmol/L BUN (7-18) mg/dL Creatinine (0.70-1.30) mg/dL Est Cr Clr Drug Dosing Estimated GFR (MDRD) (>60) BUN/Creatinine Ratio (9-20) Glucose (80-116) mg/dL Calcium (8.6-10.2) mg/dL Total Bilirubin (0.1-1.3) mg/dL AST (5-25) IU/L ALT (12-36) U/L Alkaline Phosphatase (56-112) IU/L Total Protein (6.0-8.0) g/dL Albumin (3.5-5.2) g/dL Globulin g/dL Albumin/Globulin Ratio Lipase 70 L (73-393) U/L SARS-CoV-2 RNA (TATA) (NEGATIVE) Result Diagrams: 08/30/20 06:20 08/30/20 06:20 Sepsis Event Note - Evaluation Sepsis Screening Result: No Definite Risk - Focused Exam Vital Signs: Vital Signs Temp Pulse Resp BP Pulse Ox 08/30/20 06:00 98.6 F 85 16 144/89 H 95 08/30/20 02:00 98.7 F 92 16 142/90 H 95 - Problem List & Annotations (1) Acute pancreatitis SNOMED Code(s): 568036824 Code(s): K85.90 - ACUTE PANCREATITIS WITHOUT NECROSIS OR INFECTION, UNSP Status: Acute Current Visit: No - Problem List Review Problem List Initiated/Reviewed/Updated: Yes - My Orders Last 24 Hours: My Active Orders 08/29/20 15:04 Patient Status [ADT] Routine Height and Weight [RC] 06 Intake and Output [RC] 06,14,22 Oxygen Therapy [RC] PRN Up ad Maria Teresa [RC] ASDIRECTED Vital Signs [RC] 08,12,16,20,00,04 Ondansetron [Zofran] 4 mg IV Q4H PRN Sodium Chloride 0.9% [Saline Flush] 10 ml FLUSH ASDIRECTED PRN Peripheral IV Insertion Adult [OM.PC] Routine Resuscitation Status Routine 08/29/20 15:05 Sequential Compression Device [OM.PC] Per Unit Routine 08/29/20 15:15 Pantoprazole [ProTONIX IV] 40 mg IVPUSH DAILY Sodium Chloride 0.9% [Normal Saline] 1,000 ml IV ASDIRECTED 08/29/20 Dinner Clear Liquid Diet [DIET] 08/29/20 16:24 Morphine 2 mg IVPUSH Q4H PRN 08/29/20 16:30 Enoxaparin [Lovenox] 40 mg SUBCUT Q24H 08/31/20 16:51 Abdomen Ltd [US] Routine - Plan Plan:: 1. Continue current care. 2. Lipase is low but the CAT scan that he had the ER showed pancreatitis with severe Phlegm. Is requiring MS for pain. The patient was told he needed to be admitted by the ER doc when he was seen and also Dr. Miranda yesterday because he is not responded to outpatient treatment. 3. Gallbladder ultrasound tomorrow because we can't get it today. Just to rule out any stones in the gallbladder. Most likely cause is alcohol for this situation.
[2020-08-30] MEDS: Pantoprazole 40 MG Vial IVPUSH SCH (09:21)
[2020-08-30] MEDS ORDERED: Zolpidem 10 MG Tab PO ONE ×2 (17:17→21:00)
[2020-08-30] MEDS: Enoxaparin 40 MG/0.4 ML Syringe SUBCUT SCH (17:26)
--- NOTE | 2020-08-31 09:02 | PCM.DCSUM1 ---
Discharge Summary - Hospital Course Free Text/Narrative:: 49-year-old gentleman was admitted to the hospital on 08/29/2020 after being seen in the emergency room on 08/28/2020. CT in the emergency room showed likely acute pancreatitis with phlegmon at the head of the pancreas. Patient was treated with pain control, IV fluids, antiemetics, and proton pump inhibitor. Patient improved. Patient had ultrasound on the morning of discharge, 08/31/2020. Patient states that he feels well and is ready to go home. HPI Initial Comments: 49-year-old gentleman went to the emergency department on 08/28/2020 for evaluation of abdominal pain. CT showed likely pancreatitis. He refused admission at that time. He saw his primary care physician the next day and was direct admitted to the hospital for further evaluation and treatment. He is not a normal day-to-day drinker but he has had increased alcohol intake over the last 1 to 2 weeks prior to admission. Inks he may have had a similar episode approximately 10 years ago. He has not had cholecystectomy. Diagnosis: Stroke: No - Discharge Data Discharge Date: 08/31/20 Discharge Disposition: Home, Self-Care 01 Condition: Good - Referral to Home Health Primary Care Physician: Kimo Miranda MD - Discharge Diagnosis/Problem(s) (1) Acute pancreatitis SNOMED Code(s): 978602870 ICD Code: K85.90 - ACUTE PANCREATITIS WITHOUT NECROSIS OR INFECTION, UNSP Status: Acute Current Visit: No (2) Hypertension SNOMED Code(s): 56802015 ICD Code: I10 - ESSENTIAL (PRIMARY) HYPERTENSION Status: Acute Current Visit: Yes - Patient Instructions Diet: Heart Healthy Diet Activity: As Tolerated Driving: May Drive Today Showering/Bathing: May Shower Notify Provider of: Fever, Increased Pain, Nausea and/or Vomiting - Discharge Plan *PRESCRIPTION DRUG MONITORING PROGRAM REVIEWED*: Not Applicable *COPY OF PRESCRIPTION DRUG MONITORING REPORT IN PATIENT [place]: Not Applicable Home Medications: Home Meds Acetaminophen/Diphenhydramine [Tylenol Pm Ex-Strength Caplet] 1 tab PO BEDTIME PRN 09/14/18 [History] Ibuprofen 200 - 400 mg PO Q4H PRN 08/29/20 [History] Patient Handouts: Venous Thromboembolism Prevention Referrals: Kimo Miranda MD [Primary Care Provider] - - Discharge Summary/Plan Comment DC Time >30 min.: Yes Discharge Summary/Plan Comment: Patient responded well to treatment. Ultrasound performed this morning with preliminary results showing poor visualization of the pancreas and pancreatic head secondary to bowel gas but likely normal gallbladder. Patient strongly encouraged to follow-up closely with his primary care physician for further evaluation of liver, gallbladder, bile tree, pancreas. Patient encouraged to eat a healthy diet including plenty of fiber and to use stool softeners and/or medications such as MiraLAX to have normal, soft but formed bowel movements. Patient encouraged to follow-up with his primary care physician regarding hypertension and obesity. - General Info Date of Service: 08/31/20 Admission Dx/Problem (Free Text: 49-year-old gentleman was direct admitted from his primary care physician's office for treatment of pancreatitis. He was seen the night prior to admission in the emergency department and had a CT which showed likely pancreatitis with phlegmon at the head of the pancreas. He denied admission at that time and saw his primary care physician the next day. He is not a regular alcohol drinker but he did have increased alcohol consumption over the week or 2 prior to going to the emergency department. He has not had cholecystectomy. He did have similar symptoms approximately 10 years ago. He thinks the symptoms may be associated with increased gas and constipation. Subjective Update: Patient states that he feels much better today. He still having some abdominal discomfort, mostly in the [place] and left lower quadrant regions. He states that he has a significant amount of gas and has been belching more frequently overnight. He states that he is ready to go home. Functional Status: Reports: Pain Controlled, Tolerating Diet, Ambulating, Urinating - Review of Systems General: Reports: Other (Abdominal pain, gas) HEENT: Reports: No Symptoms Pulmonary: Reports: No Symptoms Cardiovascular: Reports: No Symptoms Gastrointestinal: Reports: Abdominal Pain, Flatus Genitourinary: Reports: No Symptoms Musculoskeletal: Reports: No Symptoms Skin: Reports: No Symptoms Neurological: Reports: No Symptoms Psychiatric: Reports: No Symptoms - Patient Data Vitals - Most Recent: Last Vital Signs Temp 36.9 C 08/31/20 06:00 Pulse 81 08/31/20 06:00 Resp 16 08/31/20 06:00 BP 155/96 H 08/31/20 06:00 Pulse Ox 96 08/31/20 06:00 Weight - Most Recent: 109.344 kg I&O - Last 24 hours: Intake & Output 08/30/20 08/31/20 08/31/20 22:59 06:59 14:59 Intake Total 922 Balance 922 Lab Results - Last 24 hrs: Laboratory Results - last 24 hr 08/31/20 08/31/20 Range/Units 05:55 05:55 WBC 7.2 (3.2-10.1) x10-3/uL RBC 4.01 (3.90-5.90) x10(6)uL Hgb 12.1 L (12.9-17.7) g/dL Hct 36.3 L (38.3-50.1) % MCV 90.5 (80.8-98.7) fL MCH 30.1 (27.0-33.3) pg MCHC 33.3 (28.7-35.3) g/dL RDW 13.9 (12.4-15.0) % Plt Count 519 H (117-477) x10(3)uL MPV 8.0 (6.7-11.0) fL Neut % (Auto) 68.8 (40.3-71.8) % Lymph % (Auto) 19.1 (15.8-45.3) % [place] % (Auto) 10.2 (5.5-15.2) % Eos % (Auto) 1.5 (0.1-6.8) % Baso % (Auto) 0.4 (0.3-3.8) % Neut # (Auto) 4.9 (1.7-6.9) x10-3/uL Lymph # (Auto) 1.4 (0.5-4.5) x10-3/uL [place] # (Auto) 0.7 (0.0-1.2) x10-3/uL Eos # (Auto) 0.1 (0.0-0.6) x10-3/uL Baso # (Auto) 0.0 (0.0-0.3) x10-3/uL Lipase 90 (73-393) U/L Med Orders - Current: Current Medications Enoxaparin Sodium (Enoxaparin 40 Mg/0.4 Ml Syringe) 40 mg SUBCUT Q24H [facility] Last Admin: 08/30/20 17:26 Dose: 40 mg Documented by: Morphine Sulfate (Morphine 2 Mg/Ml Syringe) 2 mg IVPUSH Q4H PRN PRN Reason: Pain Last Admin: 08/29/20 21:24 Dose: 2 mg Documented by: Ondansetron HCl (Ondansetron 4 Mg/2 Ml Sdv) 4 mg IV Q4H PRN PRN Reason: Nausea/Vomiting Sodium Chloride (Sodium Chloride 0.9% 10 Ml Syringe) 10 ml FLUSH ASDIRECTED PRN PRN Reason: Keep Vein Open Discontinued Medications Sodium Chloride (Normal Saline) 1,000 mls @ 125 mls/hr IV ASDIRECTED [facility] Last Admin: 08/30/20 15:25 Dose: 125 mls/hr Documented by: Pantoprazole Sodium (Pantoprazole 40 Mg Vial) 40 mg IVPUSH DAILY [facility] Last Admin: 08/30/20 09:21 Dose: 40 mg Documented by: Zolpidem Tartrate (Zolpidem 10 Mg Tab) 5 mg PO ONETIME ONE Stop: 08/30/20 17:18 Last Admin: 08/30/20 19:58 Dose: Not Given Documented by: Zolpidem Tartrate (Zolpidem 10 Mg Tab) 5 mg PO ONETIME ONE Stop: 08/30/20 21:01 Last Admin: 08/30/20 21:18 Dose: 5 mg Documented by: Comments:: Patient was standing next to his bed when I entered the room. He looks well. - Exam General: Reports: Alert, Oriented, Cooperative, No Acute Distress HEENT: Reports: EOMI Lungs: Reports: Clear to Auscultation Cardiovascular: Reports: Regular Rate, Regular Rhythm, No Murmurs GI/Abdominal Exam: Normal Bowel Sounds, Tender Extremities: Normal Inspection Skin: Reports: Warm, Dry, Intact Neurological: Reports: No New Focal Deficit Psy/Mental Status: Reports: Alert, Normal Affect, Normal Mood
--- NOTE | 2020-08-31 11:46 | US ---
INDICATION: Pancreatitis, looking for gallstones. RIGHT UPPER QUADRANT/GALLBLADDER ULTRASOUND: Utilizing 2D real-time and color flow imaging, the right upper quadrant abdomen was evaluated and revealed the gallbladder wall to be normal in thickness at 1.2 mm. The gallbladder appears mildly distended but measurements were well within normal range at maximum of 62 mm. No gallstones, wall thickening, calculi, pericholecystic fluid or positive ultrasonographic Monge's sign were demonstrated. Common bile duct was normal in caliber at 3.4 mm . The liver had a normal appearance. The right kidney measured 11.9 x 6.2 x 6.2 cm and appeared normal except for some irregularity of the cortex suggesting a mild degree of renal cortical scarring. The pancreas was not adequately visualized due to intestinal gas but was seen on the recent CT scan of 09/25/20. IMPRESSION: 1. As visualized, normal appearing right upper quadrant/gallbladder ultrasound - pancreas was not adequately visualized due to intestinal gas overlying it. 2. No gallstones were demonstrated. Report was called to Dr. Verde at 1045 hours 08/31/20. [facility]
== END 2020-08-31 10:40 | disposition home or self-care (01) | DRG 440 ==
LOC: FB.MS 14:46
PROVIDERS: ADMIT Family Medicine; ATTEND Student in an Organized Health Care Education/Training Program
DX: K85.90 Acute pancreatitis without necrosis or infection, unspecified (principal); I10 Essential (primary) hypertension; Z79.899 Other long term (current) drug therapy; H54.7 Unspecified visual loss; E78.00 Pure hypercholesterolemia, unspecified; Z20.822 Contact with and (suspected) exposure to COVID-19
CPT/HCPCS: 36415; 76705; 80053; 83690; 85025; A9270-GY; C9113; J1650; J2270; J7030; U0002